=== PATIENT | female | born 1980 | race Caucasian/White ===

== ENCOUNTER → 2017-07-07 | Outpatient (CLI) | payer BC ==
[2017-07-07 14:17] LABS: URINE APPEARANCE CLEAR (CLEAR); URINE BILIRUBIN NEG (NEG); URINE COLOR YELLOW; URINE EPITHELIAL CELL AUTO 0-5 /lpf (0-5); URINE NITRITE NEG (NEG); URINE PH 6.5 (4.5-7.5); URINE SPECIFIC GRAVITY 1.008 (1.000-1.030); UROBILINOGEN NEG (NEG)
[2017-07-07 14:20] LABS: MANUAL MICROSCOPIC REQUIRED? NO; REVIEW REQ? NO
== END | disposition home or self-care (01) ==
LOC: C.LABBC 09:38
PROVIDERS: ATTEND Physician Assistant
DX: N94.9 Unspecified condition associated with female genital organs and menstrual cycle (principal)

== ENCOUNTER → 2017-07-27 | Outpatient (CLI) | payer BC ==
[2017-07-27 17:02] LABS: URINE APPEARANCE CLEAR (CLEAR); URINE BILIRUBIN NEG (NEG); URINE COLOR YELLOW; URINE NITRITE NEG (NEG); UROBILINOGEN NEG (NEG)
[2017-07-27 17:04] LABS: REVIEW REQ? NO
[2017-07-27 17:05] LABS: MANUAL MICROSCOPIC REQUIRED? NO
== END | disposition home or self-care (01) ==
LOC: C.LABBC 14:32
PROVIDERS: ATTEND Internal Medicine
DX: N39.0 Urinary tract infection, site not specified (principal)

== ENCOUNTER → 2017-09-13 | Outpatient (CLI) | payer OTHER | LOC: C.PAPS 10:06 | PROVIDERS: ATTEND Obstetrics & Gynecology | DX: Z12.4 Encounter for screening for malignant neoplasm of cervix (principal) ==

== ENCOUNTER 2021-08-19 06:39 | Inpatient (IN) ==
[~2021-08-19 06:39] MED LIST: ceFAZolin 2000MG 2,000 MG/15 ML SYR IV SCH
[2021-08-19] MEDS ORDERED: LACTATED RINGER'S 1,000 ML IV PRN (07:55)
[2021-08-19] MEDS ORDERED: OXYTOCIN 30 UNITS/500 ML BAG IV PRN (07:55)
[2021-08-19] MEDS ORDERED: BUTORPHANOL TARTRATE 1 MG/ML VIAL IV PRN (07:59)
[2021-08-19] MEDS ORDERED: LACTATED RINGER'S 1,000 ML IV SCH ×2 (08:00→12:02)
[2021-08-19 08:27] LABS: Hematocrit (blood only) 34.4 % (37-47); Hemoglobin 11.3 g/dL (12.0-16.0); Mean Corpuscular Hemoglobin 27.1 pg (25-34); Mean Corpuscular Hgb Conc 32.8 g/dL (32-36); Mean Corpuscular Volume 82.5 fL (80-100); Mean Platelet Volume 11.5 fL (7.4-10.4); Platelet Count 231 K/uL (130-400); RDW Coefficient of Variation 13.7 % (11.5-14.5); RDW Standard Deviation 41.4 fL (36.4-46.3); Red Blood Count 4.17 M/uL (4.2-5.4); White Blood Count 16.06 K/uL (4.8-10.8)
--- NOTE | 2021-08-19 09:39 | History & Physical Report ---
Date of Service August 19, 2021 Assessment & Plan (1) IUGR (intrauterine growth restriction) affecting care of mother: Plan: 41 yo primip IUP at 38 weeks in labor who is planning primary LTCS because of multiple medical issues Patient now in active labor so will proceed with LTCS now see orders for further directions Admission and Anticipated Discharge Date Admission Date: August 19, 2021 History of Present Illness Primary Care Provider: Ryan Mascorro MD Patient is a 41 yo white female [facility] 09/01/21 who presents with regular contractions since last night. no bloody show or SPROM. GBS - negative. complicated by AMA, GDM diet controlled, hypothyroidism, short stature , poor weightgain and IUGR. because of the patient's multiple medical issues she has decided on having an elective primary C/S. the procedure and it's risks were reviewed with the patient and she is willing to proceed. Allergies Allergy/AdvReac Type Severity Reaction Status Date / Time No Known Drug Allergies Allergy Verified 08/12/21 14:04 Home Medications Medication Instructions Recorded Confirmed Type cholecalciferol (vitamin D3) 50 50 mcg PO DAILY 03/17/21 08/19/21 History mcg (2,000 unit) capsule prenat.vits,delio,uqy-mltr-vqxep 1 tab PO DAILY 05/24/21 08/19/21 History levothyroxine 50 mcg tablet 50 mcg PO DAILY #30 tab 07/01/21 08/19/21 Rx acetone (urine) test (Ketone Urine #50 ea 07/22/21 08/12/21 Rx Test) blood sugar diagnostic (OneTouch #150 ea 07/22/21 08/12/21 Rx Verio test strips) lancets 33 gauge (OneTouch Delica #150 ea 07/22/21 08/12/21 Rx Plus Lancet) Patient History Medical History Abdominal pain, RLQ (right lower quadrant) Chronic insomnia Hypokalemia Hyponatremia Low bone mass Lower extremity pain Missed Myalgia Subclinical hypothyroidism Vaginismus Vitamin D deficiency Surgical History H/O breast surgery H/O oral surgery Family History Father Stroke Enlarged prostate Diabetes Mother Cardiac disorder Grandmother (Paternal) Dementia Gall stones Uncle Parkinson disease Denies family history of Ovarian cancer Prostate cancer Myocardial infarction Breast cancer Colorectal cancer Social History (Updated 07/09/21 @ 14:16 by Ciara Giodrano) Smoking Status: Never smoker Second Hand Exposure: No; Hx Alcohol Use: No Hx Substance Use: No Preferred Language: Kinyarwanda Communication Ability: Effective Visual Impairment: Limited Hearing Ability: Normal Asphalt Raker Required: No Beliefs That Will Affect Care: None marital status: marital status details: [place]h [place] (42) [phone] Current Living Situation: Spouse Current Living Situation Comment: lives with spouse, no pets current occupational status: employed current occupation: works from home-[employer] Feels Safe at Home: Yes Safety Concerns: Feels Safe At This Time Childhood Exposure to Second-Hand Smoke: No Dental Care, Regularly: Yes Physical Activity Frequency: Daily Seatbelt Use: always Sunscreen Use: Yes Assistive Devices: None Review of Systems All systems reviewed & are unremarkable except as noted in HPI & below Physical Exam Constitutional: WD/WN, vitals as above Respiratory: normal respiratory effort, lungs clear to auscultation Cardiovascular: RRR, no murmur, no edema Psychiatric: A+Ox3, euthymic affect Genitourinary: OB Exam Abdomen: + vertex Manual OB Exam: + cervical dilation 4 cm, + cervical effacement 100% and + station -1 OB Exam Monitor Tracing: + external FHT monitor used, + category I and + variable decelerations (mild and sporadic) isolated contractions every 5-7 minutes mild to moderate Results & Data ([facility]) Vital Signs (Past 12 Hours) Vital Signs Temp Pulse Resp BP 08/19/21 07:42 97.9 F 91 H 22 126/74 08/19/21 06:52 91 H 126/74 08/19/21 06:40 97.9 F 22 Code Status & VTE Plan VTE Prophylaxis Plan VTE Prophylaxis will be ordered: Yes Coding Level of Care Code None Diagnoses IUGR (intrauterine growth restriction) affecting care of mother O36.5990
[2021-08-19] MEDS ORDERED: diphenhydrAMINE 50 MG/ML VIAL IV PRN (09:41)
[2021-08-19] MEDS ORDERED: ePHEDrine sulfate 50 MG/ML AMP IV PRN (09:41)
[2021-08-19] MEDS ORDERED: NALOXONE HCL 1 MG in SODIUM CHLORIDE 0.9% 1000ML 1,000 ML IV PRN (09:41)
[2021-08-19] MEDS ORDERED: NALBUPHINE HCL INJ 10 MG/ML AMP IV PRN (09:41)
[2021-08-19] MEDS ORDERED: MoRPHine SULFATE PF 1 MG/ML 10 ML AMP/VIAL INT SPINAL ONE (09:41)
[2021-08-19] MEDS ORDERED: LACTATED RINGER'S 500 ML IV PRN (09:41)
[2021-08-19] MEDS ORDERED: ONDANSETRON INJ 2 MG/ML 2 ML VIAL IV PRN (09:41)
[2021-08-19] MEDS ORDERED: NALOXONE HCL 0.4 MG/1 ML VIAL/CARP IV PRN (09:41)
[2021-08-19] MEDS ORDERED: KETOROLAC 30 MG/ML VIAL IV PRN (09:41)
[2021-08-19] MEDS ORDERED: NALOXONE HCL 0.08 MG in SYRINGE 1.8 ML IV PRN (09:41)
[2021-08-19] MEDS ORDERED: MoRPHine SULFATE 2 MG/ML CARP IV PRN (09:41)
--- NOTE | 2021-08-19 09:41 | Anesthesiology Consultation ---
Date of Service August 19, 2021 Assessment & Plan ASA [id number] Proposed Anesthesia Anesthesia Type: Spinal Risk / Benefits Reviewed With: PT / POA / Parent / Guardian, Accepts Plan and Informed Consent Obtained History Height/Weight Height: 4 ft 9 in Weight: 46.755 kg Allergies Allergy/AdvReac Type Severity Reaction Status Date / Time No Known Drug Allergies Allergy Verified 08/12/21 14:04 Medications Home Medications Medication Instructions Recorded Confirmed Last Taken cholecalciferol (vitamin D3) 50 50 mcg PO DAILY 03/17/21 08/19/21 08/18/21 08:00 mcg (2,000 unit) capsule prenat.vits,delio,ule-njnf-mveen 1 tab PO DAILY 05/24/21 08/19/21 08/18/21 08:00 levothyroxine 50 mcg tablet 50 mcg PO DAILY #30 tab 07/01/21 08/19/21 08/18/21 08:00 acetone (urine) test (Ketone Urine #50 ea 07/22/21 08/12/21 Unknown Test) blood sugar diagnostic (OneTouch #150 ea 07/22/21 08/12/21 Unknown Verio test strips) lancets 33 gauge (OneTouch Delica #150 ea 07/22/21 08/12/21 Unknown Plus Lancet) Active Medications Generic Name Dose Route Start Last Admin Trade Name Freq PRN Reason Stop Dose Admin Butorphanol Tartrate 0.5 mg 08/19/21 07:59 08/19/21 08:23 Butorphanol Tartrate 1 Mg/Ml Vial IV 09/18/21 07:58 0.5 mg Q2H PRN Administration Pain Lactated Ringer's 1,000 mls @ 125 mls/hr 08/19/21 07:55 08/19/21 09:17 Lr IV 08/21/21 07:54 125 mls/hr .Q8H PRN Administration L&D Protocol Protocol NPO Date Last Intake of Fluids: 08/19/21 Time Last Intake of Fluids: 00:00 Date Last Intake of Solids: 08/19/21 Time Last Intake of Solids: 00:00 Past Medical History Medical History Abdominal pain, RLQ (right lower quadrant) Chronic insomnia Hypokalemia Hyponatremia Low bone mass Lower extremity pain Missed Myalgia Subclinical hypothyroidism Vaginismus Vitamin D deficiency Exercise / Class Metabolic Activity II 4-5 Yardwork/Stairs/Walk up hill Past Family History Family History Father Stroke Enlarged prostate Diabetes Mother Cardiac disorder Grandmother (Paternal) Dementia Gall stones Uncle Parkinson disease Denies family history of Ovarian cancer Prostate cancer Myocardial infarction Breast cancer Colorectal cancer Past Surgical History Surgical History H/O breast surgery H/O oral surgery Past Anesthesia History No Hx of Anesthesia Complications and No Family Hx of Anesthesia Complications History of PONV No Hx of PONV and No Hx of Motion Sickness Social History Smoking Status: Never smoker Hx Alcohol Use: No Hx Substance Use: No substance use type: does not use Review of Systems denies fever/cough/ colds/ chest pain/ SOB/ LESTER denies LESTER Physical Exam Vital Signs Last Vital Signs Temp 36.6 C 08/19/21 07:42 Pulse 91 H 08/19/21 07:42 Resp 22 08/19/21 07:42 BP 126/74 08/19/21 07:42 ENMT Mouth: no TMJ abnormality and no dentition abnormality Thyromental Distance: > or= 3.5 Finger Breadths Mallampati Class: II Neck neck extension not limited Respiratory normal respiratory effort; no respiratory distress Auscultation: lungs clear to auscultation bilaterally Cardiovascular Rate/Rhythm: regular rate and regular rhythm Neurologic moves all extremities Psychiatric Orientation: alert and oriented x 3 Testing Laboratory Results 08/19/21 08:13 Blood Type O Positive 08/19/21 08:13 Antibody Screen NEGATIVE 08/19/21 08:13
[2021-08-19] MEDS ORDERED: NO NARCOTICS OR SEDATIVES SCH (09:45)
[2021-08-19] MEDS ORDERED: DC INTRASPINAL MORPHINE SCH (09:45)
[2021-08-19] MEDS ORDERED: SODIUM CHLORIDE 0.9% 1000ML 1,000 ML IV SCH (09:45)
[2021-08-19] MEDS ORDERED: MoRPHine SULFATE PF 1 MG/ML 10 ML AMP/VIAL ONE (09:52)
[2021-08-19] MEDS ORDERED: fentaNYL citrate 100 MCG/2 ML VIAL ONE (09:52)
[2021-08-19] MEDS ORDERED: OXYTOCIN 10 UNITS/ML 10ML VIAL ONE (09:52)
[2021-08-19] MEDS ORDERED: ePHEDrine sulfate 50 MG/ML SYR ONE (10:40)
[2021-08-19] MEDS ORDERED: PHENYLEPHRINE 100MCG/ML 5ML SYR ONE (10:40)
--- NOTE | 2021-08-19 11:49 | Operative Report ---
PG Post Operative Report Pre & Post Diagnosis Operation Date: 08/19/21 10:00 Pre-Op Diagnosis: Elective primary section, in labor Post-Op Diagnosis: Same as pre-op I identified the patient and participated in the time-out.: Yes Procedure Operation Date: 08/19/21 10:00 Actual Procedures p Section in LD; Live female child at 1052 (Main OR #3)(Bilateral) - Leela Oliva MD, FACOG Surgeon Leela Oliva MD, FACOG Truck Greaser Dr. Perry Marinelli Estimated Blood Loss 3 Findings Consistent with Post-Op Diagnosis uterus gravid and consistent with term . bilateral ovaries and tubes are normal . 2 sessile fundal fibroids 1-2 cm in size. Specimens placenta to hold Drains Desir to straight drainage Anesthesia Type Spinal Complications none Disposition Accompanied Patient To Recovery: Yes Indications Patient is a 41-year-old 2 para 0-0-1-0 white female EDC of 09/01/2021 who presents at 38 weeks in active labor. has been complicated by multiple medical issues and it had been decided that she would not delivered by primary section. Her section had already been scheduled for 08/27. However since she has presented in active labor we will proceed with the primary low transverse section now. She understands the risk of procedure and is willing to proceed. Description of Procedure After the patient received adequate subarachnoid block she was prepped and draped in usual sterile fashion after a low transverse skin incision was made with a scalpel the incision was carried to the fascia with the same scalpel. The fascial incision was then extended with Mejia scissors the edges were then grasped with Melanie clamps and the underlying rectus muscles bluntly sharply dissected over the overlying fascia. The rectus muscles were bluntly divided along the midline, and the underlying peritoneum elevated and entered sharply. The bladder was taken down off the anterior surface of the uterus with Metzenbaum scissors and placed behind the bladder blade. The uterus was entered with a scalpel to the level of the membranes and extended transversely. Membranes ruptured for small amount of clear fluid. The infant was delivered from the direct occiput posterior presentation and moderate fundal pressure. T he rest of the infant delivered easily and was vigorously crying and moving all 4 limbs upon delivery. The cord was clamped and cut and infant was handed off to Dr. Haines who was in attendance as leadership program internship. The placenta was expressed intact with a three-vessel cord. The uterus was exteriorized to cover the clean lap sponge. The uterine cavity was then explored found be free of any placental tissue or membranes. Uterine incision was then closed in 2 layers in a running locking imbricating fashion with 0 Monocryl. Hemostasis was noted be satisfactory. The posterior cul-de-sac was evaluated and was free of any clot or fluid. The uterus was placed back inside the abdominal cavity and the gutters explored and found to be free of any clot or fluid. Uterus vision continued to have excellent hemostasis. The rectus muscle were then brought together on midline with individual stitches of 0 Monocryl. The fascia was closed in a running fashion with 0 Vicryl. After 2 the adipose layer was irrigated with normal saline, the skin edges were reapproximated with a subcuticular stitch of 4-0 Vicryl. Urine was clear at the end of the case mother and infant were in stable condition on arrival in labor and delivery. I attest to the content of the Intraoperative Record and any orders documented therein. Any exceptions are noted below. OB Procedure Charges 13280
[2021-08-19] MEDS ORDERED: SUPERCREAM 0.870% 15 GM JAR EXT PRN (12:02)
[2021-08-19] MEDS ORDERED: HYDROCORTISONE ACETATE 25 MG SUPP PR PRN (12:02)
[2021-08-19] MEDS ORDERED: BENZOCAINE 20% AER SPR 82.5 GM CAN EXT PRN (12:02)
[2021-08-19] MEDS ORDERED: MAGNESIUM HYDROXIDE SUSP 30 ML UDC PO PRN (12:02)
[2021-08-19] MEDS ORDERED: SENNA 8.6 MG TAB PO PRN (12:02)
[2021-08-19] MEDS ORDERED: DIPHTHERIA/TETANUS/PERTUSSIS 0.5 ML SYR/VIAL IM ONE (12:02)
--- NOTE | 2021-08-19 12:17 | Anesthesiology Progress Note ---
Date of Service August 19, 2021 Anesthesia Post Procedure Vital Signs Vital Signs: Temp Pulse Resp BP Pulse Ox 08/19/21 12:16 91 H 108/62 100 08/19/21 12:11 79 100 08/19/21 12:06 69 106/59 L 100 08/19/21 12:01 72 99 08/19/21 11:56 71 108/56 L 99 08/19/21 11:51 77 100 08/19/21 11:46 85 115/55 L 100 08/19/21 11:41 73 99 08/19/21 11:36 74 123/56 L 100 08/19/21 07:42 36.6 C 91 H 22 126/74 08/19/21 06:52 91 H 126/74 08/19/21 06:40 36.6 C 22 Transfer of Care Handoff Completed per policy Notes Mental Status: alert / awake / arousable and participated in evaluation Patient Amnestic to Procedure: Yes Nausea / Vomiting: adequately controlled Pain: adequately controlled Airway Patency, RR, SpO2: stable & adequate BP & HR: stable & adequate Hydration State: stable & adequate Anesthetic Complications: no major complications apparent and Pt Satisfied with anesthetic care
[2021-08-19] MEDS: OXYTOCIN 20 UNITS in LACTATED RINGER'S 1,000 ML IV SCH ×2 (12:54→20:08)
[2021-08-19] MEDS: LEVOTHYROXINE SODIUM 50 MCG TABLET PO SCH (14:11)
[2021-08-19] MEDS: SIMETHICONE 80 MG CHEW PO SCH (20:07)
[2021-08-19] MEDS: DOCUSATE SODIUM 100 MG CAP PO SCH (20:07)
[2021-08-20] MEDS ORDERED: KETOROLAC 30 MG/ML VIAL IV PRN (03:41)
[2021-08-20] MEDS ORDERED: ONDANSETRON INJ 2 MG/ML 2 ML VIAL IV PRN (03:41)
[2021-08-20] MEDS ORDERED: MEPERIDINE HCL 50 MG/ML CARP IV PRN (03:41)
[2021-08-20] MEDS ORDERED: diphenhydrAMINE 50 MG/ML VIAL IV PRN (03:41)
[2021-08-20] MEDS ORDERED: diphenhydrAMINE Capsule 25 MG CAP PO PRN (03:41)
[2021-08-20] MEDS ORDERED: PROMETHAZINE HCL 25 MG in SODIUM CHLORIDE 0.9% 50 ML IV PRN (03:41)
[2021-08-20] MEDS: oxyCODONE/ACETAMINOPHEN 5mg/325mg TAB PO PRN ×3 (03:54→21:33)
[2021-08-20] MEDS: IBUPROFEN 600 MG TAB PO PRN ×3 (03:54→16:19)
[2021-08-20] MEDS ORDERED: CITRIC ACID/SODIUM CITRATE 15 ML UDC PO SCH (06:00)
--- NOTE | 2021-08-20 06:25 | Obstetrical Progress Note ---
Date of Service <Perry Marinelli DO - Last Filed: 08/20/21 08:15> August 20, 2021 Assessment & Plan <Perry Marinelli DO - Last Filed: 08/20/21 08:15> (1) Encounter for care and examination after delivery: 41 yo post op day 1 from C/S, doing well. -Continue routine post care. -vital signs reviewed and WNL. (Tmax 37.1) -Blood type O+, GBS Negative, Rubella Immune -Encourage ambulation, monitor and control pain with Motrin, tylenol PRN, resume regular diet, monitor lochia. -encourage breast feeding. Breast pump - already has. -hemoglobin 9.7. <Leela Oliva MD, FACOG - Last Filed: 08/20/21 09:57> (1) Encounter for care and examination after delivery: Subjective <Perry Marinelli DO - Last Filed: 08/20/21 08:15> Ambulation: limited ambulation Voiding: no voiding problems Passing Gas:: Yes Diet Tolerance:: clear liquids Lochia:: Small Feeding Type:: breast feeding Current Pain Level(1-10): 2 Review of Systems Denies fever, chills, sweats Denies shortness of breath, difficulty breathing, chest pain, palpitations, chest pressure. Denies breast pain. Denies dysuria. Denies headache or changes in vision Physical Exam <Perry Marinelli DO - Last Filed: 08/20/21 08:15> General: Alert, oriented. No acute distress. Cardiac: Regular rate and rhythm, no murmurs/rubs/gallops. Respiratory: Clear to auscultation bilaterally a/p, no wheezes/rales/rhonchi. No increased work of breathing. Symmetrical chest rise. No respiratory distress. Abdomen: Soft, nontender, nondistended. Bowel sounds present. Uterus: Uterine fundus firm, palpable 2 cm below umbilicus. Surgical scar clean and healing well. Lower Extremities: No lower extremity edema or swelling. No deep calf pain. Dang's negative bilaterally Results & Data ([facility]) <Perry Marinelli DO - Last Filed: 08/20/21 08:15> Vital Signs (Past 12 Hours) Vital Signs Temp Pulse Resp BP Pulse Ox 08/20/21 03:45 37.0 C 75 18 103/46 L 99 08/20/21 01:30 16 97 08/20/21 00:28 18 97 08/20/21 00:01 36.9 C 79 18 104/65 98 08/19/21 23:00 18 98 08/19/21 22:00 18 97 08/19/21 21:00 18 97 08/19/21 19:55 37.1 C 81 18 96/60 L 98 08/19/21 18:43 18 98 <Leela Oliva MD, FACOG - Last Filed: 08/20/21 09:57> Co-Signing Physician Notes Resident Physician Supervision Note: I was present with Dr. Marinelli during the history and exam. I discussed the case with the resident and agree with the findings and plan as documented in the note. Any exceptions or clarifications are listed here: [None] Documented By: Leela Oliva MD, FACOG Resident Activity Tracking <Perry Marinelli DO - Last Filed: 08/20/21 08:15> Resident Involvement: Resident Care Provided Care Provided: OB Delivery
[2021-08-20] MEDS: LEVOTHYROXINE SODIUM 50 MCG TABLET PO SCH (06:26)
[2021-08-20 07:08] LABS: Basophils # (auto) 0.03 K/uL (0-0.2); Basophils % (auto) 0.2 %; Eosinophils # (auto) 0.11 K/uL (0-0.5); Eosinophils % (auto) 0.6 %; Hemoglobin 9.7 g/dL (12.0-16.0); Immature Granulocytes # (auto) 0.05 K/uL (0.00-0.02); Immature Granulocytes % (auto) 0.3 %; Lymphocytes # (auto) 1.74 K/uL (1.2-3.4); Lymphocytes % (auto) 10.1 %; Mean Corpuscular Hemoglobin 26.9 pg (25-34); Mean Corpuscular Hgb Conc 32.3 g/dL (32-36); Mean Corpuscular Volume 83.1 fL (80-100); Monocytes # (auto) 0.78 K/uL (0.11-0.59); Monocytes % (auto) 4.5 %; Neutrophils # (auto) 14.52 K/uL (1.4-6.5); Neutrophils % (auto) 84.3 %; Platelet Count 200 K/uL (130-400); RDW Coefficient of Variation 13.8 % (11.5-14.5); RDW Standard Deviation 41.8 fL (36.4-46.3); Red Blood Count 3.61 M/uL (4.2-5.4); White Blood Count 17.23 K/uL (4.8-10.8)
[2021-08-20] MEDS: PRENATAL VITAMIN 1 TAB PO SCH ×2 (07:45→08:45)
[2021-08-20] MEDS: SIMETHICONE 80 MG CHEW PO SCH ×7 (07:46→21:33)
[2021-08-20] MEDS: DOCUSATE SODIUM 100 MG CAP PO SCH ×4 (07:46→21:33)
[2021-08-20] MEDS: FERROUS SULFATE 325 MG TAB PO SCH ×3 (07:46→13:51)
[2021-08-20] MEDS ORDERED: bisacodyL 5 MG TABEC PO SCH (20:00)
[2021-08-21] MEDS: IBUPROFEN 600 MG TAB PO PRN ×4 (02:21→21:54)
[2021-08-21] MEDS: oxyCODONE/ACETAMINOPHEN 5mg/325mg TAB PO PRN ×4 (02:21→21:55)
--- NOTE | 2021-08-21 06:21 | Obstetrical Progress Note ---
Date of Service <Perry Marinelli DO - Last Filed: 08/21/21 07:31> August 21, 2021 Assessment & Plan <Perry Marinelli DO - Last Filed: 08/21/21 07:31> (1) Encounter for care and examination after delivery: 41 yo post op day 2 from C/S, doing well. -Continue routine post care. -vital signs reviewed and WNL. (Tmax 37.1) -Blood type O+, GBS Negative, Rubella Immune -Encourage ambulation, monitor and control pain with Motrin, tylenol PRN, resume regular diet, monitor lochia. -encourage breast feeding. Breast pump - already has. -hemoglobin 9.3. <Bonnie Hutson MD, FACOG - Last Filed: 08/21/21 07:37> (1) Encounter for care and examination after delivery: Subjective <Perry Marinelli DO - Last Filed: 08/21/21 07:31> Ambulation: ambulating normally Voiding: no voiding problems Passing Gas:: Yes Diet Tolerance:: regular diet Lochia:: Small Feeding Type:: breast feeding Current Pain Level(1-10): 0 Review of Systems Denies fever, chills, sweats Denies shortness of breath, difficulty breathing, chest pain, palpitations, chest pressure. Denies breast pain. Denies dysuria. Denies headache or changes in vision Physical Exam <Perry Marinelli DO - Last Filed: 08/21/21 07:31> General: Alert, oriented. No acute distress. Cardiac: Regular rate and rhythm, no murmurs/rubs/gallops. Respiratory: Clear to auscultation bilaterally a/p, no wheezes/rales/rhonchi. No increased work of breathing. Symmetrical chest rise. No respiratory distress. Abdomen: Soft, nontender, nondistended. Bowel sounds present. Uterus: Uterine fundus firm, palpable 2 cm below umbilicus. Surgical scar clean and healing well. Lower Extremities: No lower extremity edema or swelling. No deep calf pain. Dang's negative bilaterally Results & Data ([facility]) <Perry Marinelli DO - Last Filed: 08/21/21 07:31> Vital Signs (Past 12 Hours) Vital Signs Temp Pulse Resp BP Pulse Ox 08/20/21 23:15 36.5 C 89 18 113/75 08/20/21 21:05 36.5 C 89 18 113/72 96 <Bonnie Hutson MD, FACOG - Last Filed: 08/21/21 07:37> Co-Signing Physician Notes Resident Physician Supervision Note: I was present with [Name of resident] during the history and exam. I discussed the case with the resident and agree with the findings and plan as documented in the note. Any exceptions or clarifications are listed here: [None] Documented By: Bonnie Hutson MD, FACOG Resident Activity Tracking <Perry Marinelli DO - Last Filed: 08/21/21 07:31> Resident Involvement: Resident Care Provided Care Provided: OB Delivery
[2021-08-21 06:37] LABS: Hematocrit (blood only) 29.2 % (37-47); Hemoglobin 9.3 g/dL (12.0-16.0)
[2021-08-21] MEDS: LEVOTHYROXINE SODIUM 50 MCG TABLET PO SCH (08:14)
[2021-08-21] MEDS: DOCUSATE SODIUM 100 MG CAP PO SCH ×2 (08:16→21:54)
[2021-08-21] MEDS: SIMETHICONE 80 MG CHEW PO SCH ×4 (08:16→21:54)
[2021-08-21] MEDS: FERROUS SULFATE 325 MG TAB PO SCH (08:16)
[2021-08-21] MEDS: PRENATAL VITAMIN 1 TAB PO SCH (08:17)
[2021-08-21] MEDS ORDERED: bisacodyL 10 MG SUPP PR PRN (11:21)
[2021-08-22] MEDS: IBUPROFEN 600 MG TAB PO PRN ×2 (03:20→11:38)
[2021-08-22] MEDS: oxyCODONE/ACETAMINOPHEN 5mg/325mg TAB PO PRN ×2 (03:20→11:37)
[2021-08-22] MEDS: LEVOTHYROXINE SODIUM 50 MCG TABLET PO SCH (06:39)
[2021-08-22] MEDS: DOCUSATE SODIUM 100 MG CAP PO SCH (07:54)
[2021-08-22] MEDS: SIMETHICONE 80 MG CHEW PO SCH (07:54)
[2021-08-22] MEDS: PRENATAL VITAMIN 1 TAB PO SCH (07:54)
[2021-08-22] MEDS: FERROUS SULFATE 325 MG TAB PO SCH (07:55)
--- NOTE | 2021-08-22 10:26 | Obstetrical Progress Note ---
Date of Service August 22, 2021 Assessment & Plan (1) Encounter for care and examination after delivery: 41yo day 3 s/p pLTCS. Doing well. Stable for discharge Subjective Ambulation: ambulating normally Voiding: no voiding problems Passing Gas:: Yes Diet Tolerance:: regular diet Lochia:: Moderate Feeding Type:: breast feeding Physical Exam Constitutional WD/WN, vitals as above Respiratory normal respiratory effort; no respiratory distress and no labored breathing Gastrointestinal (Abdomen) Inspection/Auscultation: abdomen normal to inspection; abdomen not distended Percussion/Palpation: abdomen soft; abdomen nontender, no guarding and abdomen not rigid Incision: C/D/I Genitourinary OB Exam Abdomen: + fundal height Fundus: + firm and + relation to umbilicus (Below); not tender or not boggy Results & Data ([facility]) Vital Signs (Past 12 Hours) Vital Signs Temp Pulse Resp BP 08/22/21 00:10 36.5 C 82 18 105/69
--- NOTE | 2021-08-25 08:57 | Discharge Summary (DS) ---
DATE OF ADMISSION: 08/19/2021 DATE OF DISCHARGE: 08/22/2021 PRINCIPAL DIAGNOSIS: Intrauterine at 38 weeks, in active labor, requesting primary elective section. PRINCIPAL PROCEDURE: Primary low transverse section. HISTORY: The patient is a 41-year-old 2, para 0-0-1-0 white female who presented at 38 weeks in active labor. She had been originally scheduled for a primary elective section on 08/27/2021, but because of her active labor on admission in labor and delivery, we proceeded with the section on 08/19/2021. This was done without complications. She had an uncomplicated postop course. She was afebrile throughout her hospital stay. She was eating regular diet on her first postop day, ambulating and voiding without difficulty. Hemoglobin on admission was 11.3, hematocrit 34.4. First postop day, hemoglobin 9.7, hematocrit 30.0. Second postop day, hemoglobin 9.3, hematocrit 29.2. She was sent home in good condition with prescriptions for Motrin 600 mg p.o. q.6 hours p.r.n. pain and she will be taking Tylenol 650 mg p.o. q.6 hours p.r.n. pain as well. She is to call for temperature of 101 degrees or higher, heavy vaginal bleeding, burning with urination, increased redness, drainage or pain in her incision, calf tenderness or any other concerns. Job ID: [id number] [facility]
== END 2021-08-22 15:45 | disposition home or self-care (01) | DRG 788 ==
LOC: OPB 06:39 → 4S1 06:44 → 4S2 17:08
DX: O36.5930 Maternal care for other known or suspected poor fetal growth, third trimester, not applicable or unspecified; E03.9 Hypothyroidism, unspecified; Z83.3 Family history of diabetes mellitus; Z37.0 Single live birth; Z3A.38 38 weeks gestation of pregnancy; O24.410 Gestational diabetes mellitus in pregnancy, diet controlled; O99.284 Endocrine, nutritional and metabolic diseases complicating childbirth